=== PATIENT | male | born 1940 | race Caucasian/White ===

== ENCOUNTER 2017-03-30 18:15 | Emergency (ER) | payer OTHER, MEDICARE ==
[~2017-03-30] VITALS: Ht 170.2 cm; Wt 70.0 kg
[~2017-03-30 18:15] MED LIST: ACCOLATE10 MG; ACETAMIN500 M2 OR; ACIDOPHILU3 PO; AMOXICILLIN500 MG PO; ASPIRIN EC81 MG PO; ASPIRIN LOW81 M1 PO; ATENOLOL50 MG PO; BABY ASPIRIN81 MG PO; BLOOD GLUCOSE TEST S SC; CIPRO XR500 MG PO; CIPROFLOXACN500 MG PO; CLOPIDOGREL75 MG PO; COZAAR25 MG PO; DICLOFENAC SODI75 M1 PO; DICLOFENAC SODI75 MG PO; DICLOFENAC75 MG OR; DICLOFENAC75 MG PO; DOCUSATE SOD100 M2 PO; FLAGYL500 MG PO; GABAPENTIN100 MG PO; GLIME4T PO; GLIMEPIRIDE4 MG OR; GLIMEPIRIDE4 MG PO; ISOSORB MONO60 M1 PO; LISINOPRIL2.5 MG PO; LORTAB 5/3255 MG PO; METFORMIN HCL500 M2 PO; METFORMIN500 M1 PO; METFORMIN500 MG PO; METRONIDAZOL500 MG PO; NITRO-DUR0.4 MG/HR TD; NITROFUR MAC100 MG PO; NITROGLYCER SL; NITROGLYCER TD; NITROSTAT0.4 MG SL; OMEPRAZOLE20 M1 PO; OMEPRAZOLE20 MG PO; SIMVASTATIN40 MG PO; SIMVASTATIN80 MG PO; TENORMIN OR; TENORMIN PO; TENORMIN50 MG; TRAMADOL HCL50 MG PO; TRIAMCINOLON0.5 % EX
[2017-03-30 19:12] VITALS: BP 133/66
== END 2017-03-30 19:12 | disposition home or self-care (01) | DRG 605 ==
LOC: ED 18:15
DX: S90.01XA Contusion of right ankle, initial encounter (principal); M79.604 Pain in right leg; S80.11XA Contusion of right lower leg, initial encounter; W22.8XXA Striking against or struck by other objects, initial encounter; Y93.9 Activity, unspecified; Y92.009 Unspecified place in unspecified non-institutional (private) residence as the place of occurrence of the external cause